=== PATIENT | male | born 1990 | race Caucasian/White ===

== ENCOUNTER 2023-01-08 21:40 | Emergency (ER) | payer SELFPAY ==
[2023-01-08 23:40] LABS: C. TRACHOMATIS BY PCR DETECTED; N. GONORRHOEAE BY PCR NOT DETECTED
[2023-01-08] MEDS ORDERED: Azithromycin 250 MG Tab PO STA (23:50)
[2023-01-08] MEDS ORDERED: cefTRIAXone 500 MG in Lidocaine 1% 1 ML IM ONE (23:50)
== END 2023-01-09 00:12 | disposition home or self-care (01) ==
LOC: MW.ED 21:40
DX: A74.9 Chlamydial infection, unspecified (principal)
CPT/HCPCS: 81001; 87491; 87591; 96372; 99283; A9270; J0696; J3490

== ENCOUNTER 2023-01-13 10:04 | Emergency (ER) | payer SELFPAY ==
[2023-01-13 13:02] LABS: C. TRACHOMATIS BY PCR DETECTED; N. GONORRHOEAE BY PCR NOT DETECTED
== END 2023-01-13 10:44 | disposition home or self-care (01) ==
LOC: MW.ED 10:04
DX: A74.9 Chlamydial infection, unspecified (principal)
CPT/HCPCS: 87491; 87591; 99283